=== PATIENT | female | born 1980 | race Caucasian/White ===

== ENCOUNTER 2018-07-08 09:43 | Emergency (ER) | payer OTHER ==
[~2018-07-08] VITALS: Ht 165.1 cm; Wt 68.0 kg
[2018-07-08] MEDS ORDERED: SYNTHROID200 MCG PO (10:08)
== END 2018-07-08 11:21 | disposition home or self-care (01) ==
LOC: ER 09:43
DX: S60.571A Other superficial bite of hand of right hand, initial encounter (principal); W54.0XXA Bitten by dog, initial encounter; Y93.89 Activity, other specified; Y92.89 Other specified places as the place of occurrence of the external cause; Y99.8 Other external cause status